=== PATIENT | male | born 1990 | race Caucasian/White ===

== ENCOUNTER → 2016-06-26 | Outpatient (REF) ==
--- NOTE | 2016-06-26 09:37 | REP ---
Clinical: Pain and disability. Technique: AP, lateral, coned-down views of the lumbosacral spine. Findings: Lateral view demonstrates straightening of normal lordosis which may be secondary to positioning versus pain/spasm. Alignment is otherwise maintained and normal. The vertebral bodies are intact and there is no evidence for acute fracture / compression injury or subluxation. Disc spaces appear relatively well maintained. Impression: Straightening of normal lordosis. Signed by Titi Hdz MD 06/26/2016 09:26 A
== END ==
LOC: M SMT 09:07
PROVIDERS: ATTEND Internal Medicine
DX: Z02.1 Encounter for pre-employment examination (principal)